=== PATIENT | female | born 1950 | race Caucasian/White ===

== ENCOUNTER 2020-10-26 17:16 | Observation (INO) ==
[2020-10-26 18:30] LABS: Hemoglobin 7.2 g/dL (11.5-15.4); Red Blood Count 3.13 M/mcL (3.82-4.97); White Blood Count 12.7 K/mcL (4.3-11.1)
[2020-10-26 18:31] LABS: Basophils % 0.2 %; Eosinophils % 0.2 %; Hematocrit 24.4 % (35.3-44.9); Lymphocytes % 8.2 %; Mean Corpuscular HGB Conc 29.5 g/dL (31.6-35.5); Mean Platelet Volume 9.6 fL (9.4-12.4); Monocytes # 0.9 K/mcL (0.0-1.3); Monocytes % 6.9 %; Neutrophils # 10.6 K/mcL (1.6-8.9); Nucleated Red Blood Cells 0.2 /100 WBC (0); Platelet Count 385 K/mcL (140-400); Red Cell Distribution Width 17.8 % (11.5-14.5); Segmented Neutrophils % 83.5 %
[2020-10-26 18:37] LABS: VBG HCO3 22 mEq/L (21-27); VBG PCO2 35 mmHg (41-51); VBG PH 7.41 pH Units (7.32-7.42); VBG PO2 46 mmHg (25-50)
[2020-10-26 18:51] LABS: Troponin I < 0.03 ng/mL (< 0.04)
[2020-10-26 18:52] LABS: Alanine Aminotransferase 13 Units/L (7-52); Albumin 3.8 g/dL (3.5-5.7); Albumin/Globulin Ratio 1.3 (1.1-2.2); Alkaline Phosphatase 61 Units/L (34-104); Aspartate Amino Transferase 15 Units/L (13-39); BUN/Creatinine Ratio 17 (6-26); Bilirubin,Indirect 0.3 mg/dL (0.0-1.0); Bilirubin,Total 0.3 mg/dL (0.3-1.0); Blood Urea Nitrogen 15 mg/dL (8-23); Calcium 8.6 mg/dL (8.6-10.3); Carbon Dioxide 22 mEq/L (23-29); Chloride 110 mEq/L (98-107); Globulin 2.9 g/dL (2.4-3.5); Glucose 107 mg/dL (70-105); Osmolality,Calculated 291 (280-300); Potassium 3.9 mEq/L (3.5-5.1); Sodium 140 mEq/L (136-145); Total Protein 6.7 g/dL (6.4-8.9); eGFR For African Americans > 60 (> 60); eGFR For Non-African Americans > 60 (> 60)
[2020-10-26 18:52] LABS: Bilirubin,Urine Negative (Negative); Blood,Urine Large (Negative); Clarity,Urine Slightly Cloudy (Clear); Glucose,Urine (UA) Normal (Normal); Ketones,Urine Negative (Negative); Leukocyte Esterase,Urine Negative (Negative); Nitrite,Urine Negative (Negative); Protein,Urine 100 mg/dL (Neg-Trace); Specific Gravity,Urine 1.025 (1.010-1.025); Urobilinogen,Urine Normal (Normal)
[2020-10-26 18:53] LABS: Color,Urine Light-Yellow (Yellow)
[2020-10-26 18:54] LABS: Amorphous Sediment,Urine Few per hpf (None-Few); Squamous Epithelial Cell,Urine Few per hpf (None-Few)
[2020-10-26] MEDS ORDERED: Pantoprazole 40 MG VIAL IVP ONE (22:24)
[2020-10-26] MEDS ORDERED: Nitroglycerin 0.4 MG TAB.SUBL SL PRN (22:24)
[2020-10-26] MEDS ORDERED: Naloxone 0.4 MG/ML INJ IVP PRN (22:24)
[2020-10-27] MEDS ORDERED: 0.9 % Sodium Chloride 500 ML ONE (00:35)
[2020-10-27] MEDS ORDERED: Acetaminophen 325 MG TABLET PO PRN (02:05)
[2020-10-27] MEDS ORDERED: Furosemide 20 MG/2 ML VIAL IVP ONE (03:30)
[2020-10-27] MEDS ORDERED: 0.9 % Sodium Chloride 250 ML ONE (04:36)
[2020-10-27] MEDS: *HR* Rivaroxaban 10 MG TABLET PO SCH (08:01)
[2020-10-27] MEDS: Cyanocobalamin (B-12) 1,000 MCG TABLET PO SCH (08:01)
[2020-10-27] MEDS: Multivit/Ca/Min/Fe/FA 1 TAB TABLET PO SCH ×2 (08:01→21:31)
[2020-10-27 11:53] LABS: Hematocrit 35.4 % (35.3-44.9); Hemoglobin 10.8 g/dL (11.5-15.4); Mean Corpuscular HGB Conc 30.5 g/dL (31.6-35.5); Mean Corpuscular Volume 78.7 fL (83.0-100.0); Mean Platelet Volume 9.4 fL (9.4-12.4); Platelet Count 354 K/mcL (140-400); Red Cell Distribution Width 17.7 % (11.5-14.5); White Blood Count 9.9 K/mcL (4.3-11.1)
[2020-10-27 12:19] LABS: Alanine Aminotransferase 12 Units/L (7-52); Albumin/Globulin Ratio 1.3 (1.1-2.2); Alkaline Phosphatase 63 Units/L (34-104); Aspartate Amino Transferase 16 Units/L (13-39); BUN/Creatinine Ratio 15 (6-26); Bilirubin,Total 0.8 mg/dL (0.3-1.0); Blood Urea Nitrogen 13 mg/dL (8-23); Calcium 8.8 mg/dL (8.6-10.3); Carbon Dioxide 26 mEq/L (23-29); Chloride 105 mEq/L (98-107); Globulin 3.1 g/dL (2.4-3.5); Glucose 97 mg/dL (70-105); Magnesium 1.8 mg/dL (1.6-2.6); Osmolality,Calculated 284 (280-300); Potassium 3.8 mEq/L (3.5-5.1); Sodium 137 mEq/L (136-145); Total Protein 7.1 g/dL (6.4-8.9); eGFR For African Americans > 60 (> 60); eGFR For Non-African Americans > 60 (> 60)
[2020-10-27 19:48] LABS: % Iron Saturation 58 % (15-50); Iron 272 mcg/dL (50-170); Transferrin 335 mg/dL (203-362)
[2020-10-27 20:26] LABS: Folate > 22.3 ng/mL (3.0-16.0); Vitamin B12 402 pg/mL (250-1100)
[2020-10-28 05:42] LABS: Hematocrit 33.1 % (35.3-44.9); Hemoglobin 10.2 g/dL (11.5-15.4); Mean Corpuscular HGB Conc 30.8 g/dL (31.6-35.5); Mean Corpuscular Hemoglobin 23.9 pg (28.0-33.3); Mean Corpuscular Volume 77.7 fL (83.0-100.0); Mean Platelet Volume 9.9 fL (9.4-12.4); Platelet Count 358 K/mcL (140-400); Red Blood Count 4.26 M/mcL (3.82-4.97); Red Cell Distribution Width 17.9 % (11.5-14.5); White Blood Count 8.7 K/mcL (4.3-11.1)
[2020-10-28 06:01] LABS: Alanine Aminotransferase 10 Units/L (7-52); Albumin 3.3 g/dL (3.5-5.7); Albumin/Globulin Ratio 1.2 (1.1-2.2); Alkaline Phosphatase 53 Units/L (34-104); Aspartate Amino Transferase 13 Units/L (13-39); BUN/Creatinine Ratio 15 (6-26); Bilirubin,Total 0.7 mg/dL (0.3-1.0); Blood Urea Nitrogen 12 mg/dL (8-23); Calcium 8.4 mg/dL (8.6-10.3); Carbon Dioxide 24 mEq/L (23-29); Chloride 107 mEq/L (98-107); Globulin 2.8 g/dL (2.4-3.5); Glucose 93 mg/dL (70-105); Osmolality,Calculated 285 (280-300); Potassium 3.4 mEq/L (3.5-5.1); Sodium 138 mEq/L (136-145); Total Protein 6.1 g/dL (6.4-8.9); eGFR For African Americans > 60 (> 60); eGFR For Non-African Americans > 60 (> 60)
[2020-10-28] MEDS: Cyanocobalamin (B-12) 1,000 MCG TABLET PO SCH (09:20)
[2020-10-28] MEDS: *HR* Rivaroxaban 10 MG TABLET PO SCH (09:20)
[2020-10-28] MEDS: Multivit/Ca/Min/Fe/FA 1 TAB TABLET PO SCH (09:23)
[2020-10-28 11:10] VITALS: BP 113/67
== END 2020-10-28 14:31 | disposition home health service (06) ==
LOC: EMEROOGRE 17:16 → INPGRE 17:16
PROVIDERS: ADMIT Family Medicine; ATTEND Family Medicine